=== PATIENT | male | born 1995 | race Caucasian/White ===

== ENCOUNTER 2017-11-25 11:17 | Day surgery (SDC) | payer OTHER, SELFPAY ==
[2017-11-25 11:39] LABS: #Lymphocytes 1.7 thou/uL (1.20-3.40); #Monocytes 1.3 thou/uL (0.11-0.59); #Neutrophils 15.3 thou/uL (1.40-6.50); %Basophils 0.1 % (0.0-1.0); %Eosinophils 0.2 % (0.0-10.0); %Lymphocytes 9.2 % (21.0-51.0); %Monocytes 7.3 % (0.0-10.0); %Neutrophils 83.3 % (42.0-75.0); Hemoglobin 15.4 g/dL (14.0-18.0); Mean Corpuscular HGB CONC 33.2 g/dL (32.0-36.0); Mean Corpuscular Hemoglobin 31.2 pg (27.0-31.0); Mean Platelet Volume 7.5 fL (7.4-10.4); Platelet Count 239 thou/uL (130-400); RBC Distribution Width 12.1 % (11.5-14.5); Red Blood Cell (RBC) Count 4.92 mill/uL (4.70-6.10); White Blood Cell (WBC) Count 18.4 thou/uL (4.8-10.8)
[2017-11-25] MEDS ORDERED: Ondansetron PF 4 MG/2 ML Vial ONE ×2 (11:43→14:49)
[2017-11-25] MEDS ORDERED: Fentanyl 100 MCG/2 ML VIAL ONE ×3 (11:43→12:47)
[2017-11-25 12:08] LABS: ALT (SGPT) 14 U/L (8-55); AST (SGOT) 16 U/L (5-34); Albumin 4.7 g/dL (3.5-5.0); Alkaline Phosphatase 72 U/L (40-150); Anion Gap 13 mmol/L (10-20); BUN (Urea Nitrogen) 14 mg/dL (8.9-20.6); Bilirubin, Total 0.7 mg/dL (0.2-1.2); Calc. Creatinine Clearance 0 mL/min (70-130); Calcium 9.6 mg/dL (7.8-10.44); Carbon Dioxide 25 mmol/L (22-29); Chloride 102 mmol/L (98-107); Estimated GFR-MDRD Greater than 90; Globulin 2.9 g/dL (2.4-3.5); Glucose 111 mg/dL (70-105); Lipase 27 U/L (8-78); Potassium 4.1 mmol/L (3.5-5.1); Protein, Total 7.6 g/dL (6.0-8.3); Sodium 136 mmol/L (136-145)
--- NOTE | 2017-11-25 12:25 | CT ---
CT ABDOMEN AND PELVIS WITH IV AND ORAL CONTRAST: HISTORY: Abdominal pain. FINDINGS: The lung bases are clear. Small cysts are associated with the cortex of the left kidney. The liver, spleen, right kidney, adrenal glands, and pancreas have a normal CT appearance. The urinary bladder is decompressed. Lack of oral contrast limits evaluation of the bowel. In the right lower quadrant, subtle stranding is present within the fat around a fluid-filled tubular structure that measures up to 1.[address] and contains a 0.5 cm laminated calcification. The wall is slightly thickened. Subtle distention of small bowel loops in the right lower quadrant is likely related to the adjacent inflammation. IMPRESSION: Acute appendicitis. POS: [facility]
[2017-11-25] MEDS ORDERED: Lidocaine 1% w/Epinephrine 1:200K 30 ML VIAL ONE (13:00)
[2017-11-25] MEDS ORDERED: Bupivacaine 0.25% HCL 30 ML VIAL ONE (13:00)
[2017-11-25] MEDS ORDERED: CEFAZOLIN/Water 2 GM/20 ML SYRINGE ONE (13:23)
--- NOTE | 2017-11-25 13:56 | HP ---
DATE OF ADMISSION: 11/25/2017 HISTORY OF PRESENT ILLNESS: A 22-year-old man presented to emergency department complainin g of insidious onset periumbilical abdominal pain which started at 1700 hours yesterday. The patient had two bouts of nonbilious emesis last night. The pain has settled in the right lower quadrant tod ay and persisted there. The patient denies any diarrhea. He denies any fevers or chills. PAST MEDICAL HISTORY: Denies any previous medical problems. PAST SURGICAL HISTORY: The patient denied any previous surgeries. SOCIAL HISTORY: He is single. 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 He d enies any cigarette smoking, ethanol or illicit drug abuse. FAMILY HISTORY: Notable for diabetes mellitus. He denies any family history of heart disease, essen tial hypertension or cancer. CURRENT MEDICATIONS: None. ALLERGIES: PENICILLIN. REVIEW OF SYSTEMS: A 10 point review of systems essentially unremarkable except for as stated in pas t medical history and chief complaint. PHYSICAL EXAMINATION: GENERAL: This reveals a 22-year-old normally developed man who is otherwise coherent and interactive and appears stated age. The patient is alert and oriented x3, appears to be in no significant acute distress at the time of my evaluation. HEENT: Examination reveals normocephalic and atraumatic. Pupils are equal, round, and reactive to l ight and accommodation. Extraocular muscles are intact bilaterally. No sclerae icterus is present. NECK: Supple. No palpable lymphadenopathy or thyromegaly present. HEART: Reveals regular rate and rhythm, no murmurs or gallops auscultated. LUNGS: Clear to auscultation bilaterally. Breathing is regular and unlabored. ABDOMEN: Soft with right lower quadrant tenderness at McBurney's. He has a positive Rovsing sign. Liver and spleen are nonpalpable below costal margins. EXTREMITIES: Reveals 2+ radial and pedal pulses bilaterally. No ankle edema is present. NEUROLOGIC: Examination reveals no focal deficits present. LABORATORY DATA: Pertinent laboratory findings includes CBC with 18,400 white blood cells, hemoglobi n 15.4, hematocrit 46.2, platelet count is 239,000. Metabolic profile: Sodium 136, potassium is 4.1 , chloride is 102, bicarbonate 25, BUN 14, creatinine 0.78, glucose 111, AST and ALT normal at 16 and 14 respectively. Total bilirubin is also normal at 0.7. Serum lipase is normal at 27. I have personally reviewed CT scan of the abdomen and pelvis which is remarkable for dilated appendix with minimum periappendiceal fat stranding and appendicolith. IMPRESSION: Acute appendicitis. PLAN: Laparoscopic appendectomy. The above findings and plan discussed with the patient. I have ad vised the patient of the risks and benefits of the proposed surgery. Risks include, but not limited to bleeding, infection, injury to bowel or surrounding structures. The patient indicated understanding of this information I have given him in the presence of his nurse . I have answered his questions. The patient has given consent for this admission and surgical inte rvention.
--- NOTE | 2017-11-25 14:41 | OP ---
DATE OF OPERATION: 11/25/2017 PREOPERATIVE DIAGNOSIS: Acute appendicitis. POSTOPERATIVE DIAGNOSIS: Acute suppurative retrocecal appendicitis. SURGERY PERFORMED: Laparoscopic appendectomy. SURGEON: Kirk Smiley D.O. ANESTHESIA: General endotracheal. ESTIMATED BLOOD LOSS: 5 mL FLUIDS GIVEN: 800 mL crystalloids. SPONGE AND INSTRUMENT COUNT: Certified as correct x2. COMPLICATIONS: None apparent at time of operation. INDICATIONS FOR PROCEDURE: A 22-year-old man presented with insidious onset abdominal pain . Clinical and radiographic examination was consistent with acute appendicitis for which patient was brought to the operating room for appendectomy. Findings are consistent with acute suppurative retrocecal appendicitis. There was moderate amount of purulent fluid in the pelvis. No evidence of perforation present. DESCRIPTION OF PROCEDURE: Informed consent obtained from the patient who was brought to the operatin g room and placed in supine position. Following general anesthesia, the abdomen is sterilely prepped and draped in the usual fashion. The skin below the umbilicus was infiltrated with 0.25% Marcaine w ith epinephrine. A small curvilinear infraumbilical incision is made using an 11 scalpel. Umbilical stalk was grasped with Rogelio and elevated. Veress needle was inserted through the incision and isauro ambrose in the peritoneal cavity through which the abdomen was insufflated with 3 liters of CO2 gas. Int raabdominal pressure noted at 2 mmHg. Following abdominal insufflation, Veress needle was removed an d a 5 mm trocar was introduced using a Visiport under laparoscopy. Laparoscopy confirmed proper plac ement of the port, no injuries to underlying structures. Additional laparoscopy reveals right lower quadrant obscured by omental adhesions. Under direct laparoscopy, 5 mm suprapubic and 12 mm left low er quadrant ports were placed after the overlying skin was infiltrated with 0.25% Marcaine with epine phrine and appropriate incision was made. The patient was then placed in a Trendelenburg position, r otated to his left. I introduced a Prestige grasper through the left lower quadrant port site using this to bluntly take down omental adhesions from the right lower quadrant to expose suppurative retro cecal appendix. Endo Lei forceps was then introduced through the suprapubic port site grasping t he appendix, which was elevated. I used the [place] dissector to create a rent through the mesoappe ndix at the base. Endo-AIMEE with a blue load was then used to divide the appendix at the appendicocec al junction. Using an Endo AIMEE with a white load, the mesoappendix was divided at the base with good hemostasis. The suppurative appendix is delivered off the abdominal cavity using an EndoCatch. Ope rative site was inspected for good hemostasis. The seropurulent fluid was evacuated from the pelvis. The operative site and pelvis was irrigated with saline and evacuated with suction. Finding no oth er pathology, laparoscopy was terminated. Fascia of the left lower quadrant port site was closed usi ng 0 Vicryl suture and an Endo closure device under laparoscopy. The abdomen was desufflated. All p orts and instruments removed and accounted for. Skin incisions were closed using 4-0 Monocryl suture in subcuticular fashion. Dermabond was then applied over the incisions. The patient tolerated the operation without any apparent complication and was returned to recovery room in a satisfactory condi tion.
[2017-11-25] MEDS ORDERED: PROPOFOL 200 MG/20 ML VIAL ONE (14:49)
[2017-11-25] MEDS ORDERED: Dexamethasone 20 MG/5 ML VIAL ONE (14:49)
[2017-11-25] MEDS ORDERED: Lidocaine 1% PF 5 ML VIAL ONE (14:49)
[2017-11-25] MEDS ORDERED: ISOVUE-370 76%-LOCM 1 ML ONE (17:07)
== END 2017-11-25 16:40 | disposition home or self-care (01) ==
LOC: ERS 11:17 → SDC 13:05
PROVIDERS: ATTEND Surgery
PROC: 0DTJ4ZZ Resection of Appendix, Percutaneous Endoscopic Approach (ICD-10-PCS; principal; 2017-11-25)
DX: K35.89 Other acute appendicitis (principal)
CPT/HCPCS: 36415; 74177; 80053; 83690; 85025; 88304; 96361; 96374; 96375; J1100; J2001; J2405; J2704; J3010; S0020